=== PATIENT | male | born 1955 | race African-American/Black ===

== ENCOUNTER 2016-07-26 16:53 | Inpatient (IN) | payer MEDICARE, MEDICAID ==
--- NOTE | ~2016-07-26 | PR ---
[place], [place] PROGRESS NOTE NAME: ELISA MORRIS UNIT #: [id number] ROOM: 315 DOCTOR: RAFI BOO BIRTHDATE: [birth year] DOS: 07/28/2016 CHIEF COMPLAINT: "Good morning." SUMMARY OF VISIT: The patient was assessed and interviewed in his room. He initially did not talk to me when I asked him if he remembered me from [facility]. He opened his eyes and said oh yeah, hi. He was lying in bed, waiting for breakfast. Staff notes that he has been refusing p.o. medications and becomes quite agitated when I tried to encourage him to take it. Discussed with Dr. Escboar, we are going to discontinue as much of his p.o. psych meds as we can to limit this since he did get an injection yesterday. He is okay with taking injections. MENTAL STATUS: He is alert and oriented to person, place, approximate time. I think he is still psychotic and delusional, but he is calming down. Again, we are trying to accommodate him a little bit and trying to prevent his escalating behaviors by limiting medications that we can avoid at this point in time. PLAN: He did get his Haldol Decanoate injection today. We will plan on giving him a low dose Invega Sustenna 234 mg at the end of the month. I will discontinue his trazodone and his p.o. Invega at this point in time. He takes his Klonopin and we will continue to try to engage in individual and sandhu milieu therapy and monitor for improvement. JUSTYNA BOO CNP CM:PNTRANS [id number] RAFI BOO 07/28/16 1027 interface
--- NOTE | ~2016-07-26 | PR ---
[place], [place] PROGRESS NOTE NAME: ELISA MORRIS UNIT #: [id number] ROOM: 315 DOCTOR: WENDY BAKER MD BIRTHDATE: [birth year] DOS: 08/08/2016 CHIEF COMPLAINT: "When do I get to go home." SUMMARY OF THE VISIT: The patient was interviewed in his room where he was resting in bed. He voiced no complaints. The patient was visited Monday by [facility], which is a care home in the [facility]. He apparently had resided there in the past and was very happy to see them. All indications are that they are accepting him there and will do so on Monday. He does seem to be happy with this decision. MENTAL STATUS: The patient is alert and oriented. Mood does seem to be trending towards euthymia and overall he has improved significantly from admission. PLAN: At the present time, his medication regimen is stable. I will maintain both the Haldol Decanoate and the Invega Sustenna at their current doses, both being by 2 weeks in order to maintain significant and consistent blood levels. We will monitor and support. Plan to discharge then tomorrow. WENDY BAKER MD CM:PNTRANS [id number] WENDY BAKER MD 08/08/16 0946 interface
--- NOTE | ~2016-07-26 | PR ---
[place], [place] PROGRESS NOTE NAME: ELISA MORRIS UNIT #: [id number] ROOM: 315 DOCTOR: RAFI BOO BIRTHDATE: [birth year] DOS: 07/31/2016 CHIEF COMPLAINT: Nonverbal. SUMMARY OF VISIT: The patient was assessed in the dining room and in the hallway throughout my rounds today. I tried to engage him in conversation and patient finally said he was fine, but then would not participate in any other conversations today. No voiced complaints from nursing. Basically, stated that he was okay yesterday. He is still noncompliant with his medications, which I fear is going to cause his behaviors to become worse eventually. MENTAL STATUS EXAMINATION: Alert and oriented to person and place. I do not know about time. Mood is very labile, still delusional, talking on his finger phone, responding to hallucinations. No elissa or hypomania. PLAN: His Invega Sustenna injection is due at the end of the month. We may need to give that to him sooner than later. He did receive his Haldol Deaconate injections several days ago. [facility], he has been fine. It is just that he is going deeper and deeper into the delusions and becoming more withdrawn, so we may need to give him the Invega Sustenna sooner. We will continue to monitor. Hospitalist did finally discontinue his fingersticks and some of his medications to help simplify it, so that he would not become agitated, refusing them. We will try to engage in individual and sandhu milieu therapy and plan to discharge once stable. JUSTYNA BOO CNP CM:PNTRANS [id number] 15 RAFI BOO 07/31/16 171 interface
--- NOTE | ~2016-07-26 | PR ---
[place], [place] PROGRESS NOTE NAME: ELISA MORRIS UNIT #: [id number] ROOM: 315 DOCTOR: WENDY BAKER MD BIRTHDATE: [birth year] DOS: 08/06/2016 INTERVAL NOTE CHIEF COMPLAINT: "When am I going home?" SUMMARY OF THE VISIT: The patient was interviewed as he rested in bed. He had his back to me. He very quickly turned around and was fixated once again on going home. When I did tell him that this was unknown, he did get little upset with me turned his back to me once again and refused to speak to me. Nurses report, he continues to be very bizarre and is talking to unforeseen others, talking to his finger phone, etc. MENTAL STATUS: He is alert and oriented with time gaps. Mood does still seem to be labile, but he is much less agitated and self redirects much better. There is no hypomania or elissa. He remains grossly psychotic, but this is baseline, there has been no agitation or aggression. Memory has gaps. PLAN: I will maintain his current psychotropic regimen. Continue to support and monitor, engage in individual and sandhu milieu activity as we continue to explore possible placement options for the patient. WENDY BAKER MD CM:PNTRANS [id number] WENDY BAKER MD 08/06/16 1025 interface
--- NOTE | ~2016-07-26 | PR ---
[place], [place] PROGRESS NOTE NAME: ELISA MORRIS UNIT #: [id number] ROOM: 315 DOCTOR: WENDY BAKER MD BIRTHDATE: [birth year] DOS: 08/05/2016 CHIEF COMPLAINT: "I have been here 900 centuries, how much longer do I have to stay here." SUMMARY OF THE VISIT: The patient was interviewed as he rested in bed. As I approached, he very angrily said that he had been here 900 centuries and was ready to leave. I did redirect and state that we are working on finding him placement. He did initially become somewhat verbally agitated, but very quickly calmed himself down and did state that he was going to go down and have breakfast. He has been much more redirectable of late and may begin to escalate, but very quickly self redirects without prompting. He does seem to be tolerating the current regimen well. I see no sedation, somnolence, extrapyramidal symptoms or tardive dyskinesia. MENTAL STATUS: He is alert and oriented with some time gaps. Mood does seem to be trending towards euthymia and affect is more appropriate. There are no symptoms of elissa or hypomania. There remains residual psychosis, but this the patient's baseline. PLAN: At the present time is to maintain the current psychotropic regimen. There does seem to be a trend toward improvement. He is tolerating the medicines well without side effects. We will continue to have social services analyst explore placement options and will discharge him then when appropriate placement option exists. WENDY BAKER MD CM:PNTRANS [id number] WENDY BAKER MD 08/05/16 0937 interface
--- NOTE | ~2016-07-26 | PR ---
[place], [place] PROGRESS NOTE NAME: ELISA MORRIS UNIT #: [id number] ROOM: 315 DOCTOR: RAFI BOO BIRTHDATE: [birth year] DOS: 07/30/2016 CHIEF COMPLAINT: "The patient will not talk to me today." SUMMARY OF VISIT: The patient was assessed in the dining room where he was talking on his finger phone getting very agitated with the conversation, he was having with himself. I waited until he was off his call and then try to engage him in conversation and patient refused to talk to me today. Nursing does note that he refused all meds yesterday, very agitated with the multiple fingersticks for the diabetes and our attempts to get a urinalysis. We did discuss with the hospitalist, they are agreeable with us as far as the blood glucose checks. I went ahead and discontinued the urinalysis. We could try to redirect and we are trying to simplify medications as much as possible. MENTAL STATUS: Alert and oriented to person, place and I do not think time. Mood still quite labile. He is having delusions may be responding to hallucinations. We will keep an eye on him. PLAN: The Invega Sustenna injection is scheduled for the end of the month. He did receive his Haldol Decanoate injections. Again, we simplified his p.o. meds as much as possible got rid of any labs or fingersticks that is causing increased irritation. At this point in time, patient is okay with taking injectables just not p.o. pills. This has been his case in the past as well, so we will continue to monitor, try to redirect we can and we will use IMs if he becomes behavioral to the point where he is harm to himself or others. JUSTYNA BOO CNP CM:PNTRANS [id number] RAFI BOO 07/30/16 1115 interface
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
--- NOTE | ~2016-07-26 | PR ---
[place], [place] PROGRESS NOTE NAME: ELISA MORRIS UNIT #: [id number] ROOM: 315 DOCTOR: WENDY BAKER MD BIRTHDATE: [birth year] DOS: 08/09/2016 INTERVAL NOTE CHIEF COMPLAINT: "When am I going home, you know I did do time in the service." SUMMARY OF THE VISIT: The patient was interviewed once again as he rested in bed. He at first very angrily asked me when he was going home, and when I told him we were still working on housing options, he did state that he is [facility] and did do time in the . Whether this is reality or one of the patient's outrageous comments, I am unclear, but I will discuss this with social media strategist to evaluate. Otherwise, he is much more redirectable than he has been upon early admission. MENTAL STATUS: He is alert and oriented with mild time gaps. Mood does seem to be more euthymic. Affect is more appropriate. While he still has residual delusional material present, he is more redirectable and does back down more quickly when confronted. Memory has some mild gaps, but otherwise he is intact. PLAN: I will maintain his current dosing of the Invega Sustenna and the Haldol Decanoate; they do seem to be having a positive impact on his overall level of psychosis and mood lability. I see no tardive dyskinesia or extrapyramidal symptoms. At this point, the major issue is housing. As we are not finding any long-term care facility that can adequately meet his needs, at this point I do not see him as a candidate to go into a [facility]. He does require more consistent supervision than a m[facility] could offer. I will discuss this further with social media strategist to see what options the patient has. WENDY BAKER MD CM:PNTRANS 0810 1132 WENDY BAKER MD 08/09/16 1133 interface
--- NOTE | ~2016-07-26 | PR ---
[place], [place] PROGRESS NOTE NAME: ELISA MORRIS UNIT #: [id number] ROOM: 315 DOCTOR: WENDY BAKER MD BIRTHDATE: [birth year] DOS: 08/07/2016 CHIEF COMPLAINT: "Hey, when do I get to go home?" SUMMARY OF THE VISIT: The patient was interviewed as he rested quietly in bed. He engaged briefly in conversation that was very fixated on him leaving. He remains very delusional and that he believes that he could leave here, go to an apartment, that he does not go to a snf. He still continues to state that his mother is . He did redirect, however, and did not escalate to the point where he became angry with me, which he had done earlier in his hospital stay. He does appear to be tolerating the medications well, and I see no tardive dyskinesia, extrapyramidal symptoms, or other type of side effects. MENTAL STATUS: He is alert and oriented with some time gaps. Mood does still to be labile, but redirectable. He remains grossly delusional, but this seems fixed. There are some gaps in his memory. PLAN: I will maintain his current psychotropic regimen given benefits without apparent side effects, engage in individual and sandhu milieu activity with the plan to return to the least restrictive environment when stable. WENDY BAKER MD CM:PNTRANS [id number] WENDY BAKER MD 08/07/16 1106 interface
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
--- NOTE | ~2016-07-26 | PR ---
[place], [place] PROGRESS NOTE NAME: ELISA MORRIS UNIT #: [id number] ROOM: 315 DOCTOR: RAFI BOO BIRTHDATE: [birth year] DOS: 07/29/2016 CHIEF COMPLAINT: "Good morning." SUMMARY OF VISIT: The patient was interviewed in the dining room where he engaged in conversation. He is still a little manic, hyper, talking on his finger phone, redirectable though for me and did much better over the last 24 hours except that he was refusing his p.m. meds per the night nurses. He took them per the day nurses, however. He did become agitated with the multiple fingersticks for his diabetes. He states that we could do it one time a day and that was it. Upon reviewing his labs, the nurses state that his blood glucoses have been within normal range and he has not required any treatment. So, I am asking that they reach out to the hospitalist and let them know that I am going to have them switch just once a day and this is only to decrease behaviors, confrontations, agitations from this person so that we can get him a little bit more stable. MENTAL STATUS: He is alert and oriented to person, place, approximate time. Mood, still labile. No overt signs of auditory or visual hallucinations. He can be delusional. He has full conversations on his finger phone. There are some memory issues. PLAN: He did get a Haldol Deaconate injection. This titrate up in his system. I went ahead and put in the order for the Invega Sustenna 234 mg for him to receive at the end of the month. I discontinued as many as p.o. meds as possible because this was agitating point for him as well. We will continue to try to engage in individual and sandhu milieu therapy and allow the injectables to work and go from there. JUSTYNA BOO CNP CM:PNTRANS [id number] RAFI BOO 07/29/16 0900 interface
--- NOTE | ~2016-07-26 | PR ---
[place], [place] PROGRESS NOTE NAME: ELISA MORRIS UNIT #: [id number] ROOM: 315 DOCTOR: WENDY BAKER MD BIRTHDATE: [birth year] DOS: 08/01/2016 CHIEF COMPLAINT: "I don't need no medicine, I am done with medicine." SUMMARY OF THE VISIT: The patient was attempted to be interviewed as he rested in bed. As I approached and began talking to him, he escalated very quickly and became very angry and irritable. He reported that he did not need to be here, he did not need to be on medicine, and he wanted to go home. Attempts to engage him to come down for breakfast or leave his room were met with him becoming more angry. MENTAL STATUS: He is alert and oriented to person, place, approximate to time. Mood is very volatile and he is very much on edge and irritable. He remains grossly psychotic and nurses report significant mood swings and psychotic behavior. Memory was not fully tested due to his lack of cooperation. PLAN: Given the fact that he is episodically noncompliant with his medicines, I am going to attempt to simplify his regimen. So, we are not offering him 30 pills in any given day. Along those lines, I will discontinue vitamin D, folic acid, Os-Yuriy, and niacin and replace it with multivitamin with minerals. I will likewise discontinue the Fleet and the Dulcolax and increase lactulose from 20 g twice a day to 40 g twice a day. I will discontinue Ativan at this point. Given his severity of his psychosis, would prefer to use Geodon if needed. He is also on straight Klonopin. I will go ahead and move his Invega Sustenna injection up from to be given now and that will be 234 mg IM monthly. I may switch him from the oral Provera to Depo-Provera, again lessening his load of oral medications, so we can get him to be more compliant with his other medicines. We will attempt to engage him in individual and sandhu milieu activity. Social Service is aware that we are looking out for alternative placement for him. We will continue to do so and discharge him when such a placement is found and his behavior is under control. WENDY BAKER MD CM:PNTRANS 0931 1044 WENDY BAKER MD 08/01/16 1044 interface
[~2016-07-26 16:53] MED LIST: ADVAIR 250/501 EA INH; ADVAIR DISKUS 21 DSK INH; ASPIR LOW81 MG PO; ATORVASTATIN CA10 M1 PO; AYR NASAL GEL22 M1 NAS; BISAC-EVAC10 MG RC; CALCIUM 500 +1 EAC1 PO; CITALOPRAM HYDR20 MG PO; COLACE100 MG PO; FLEET ADULT ENEM1 EA R; GLUCAGON EMERGEN1 M1 IJ; GLUCOPHAGE500 M1 PO; HALDOL DECA100 MG/ML IM; HALOPERIDO100 MG/1 M IM; INVEGA SUSTENN156 MG IM; INVEGA SUSTENN234 MG IM; INVEGA6 MG PO; LACTULOSE20 GM/30 M PO; LANTUS100 U/ML SQ; LEVEMIR FLEX100 U/ML SC; LOPRESSOR25 MG PO; Lac-Hydrin 12%340 GM TP; MEDROXYPROGESTE10 M1 PO; MOM30 M1 PO; NATURE'S BLEND F1 MG PO; NIACIN 37 MG-501 TAB PO; NIACIN500 M5 PO; PROVERA5 MG PO; SEROQUEL400 M1 PO; TESSALON PERLE100 MG PO; TRAZODONE150 MG PO; TYLENOL325 M1 PO; VITAMIN D350000 UNIT PO; VITAMIN D50000 I3 PO; ZIPRASIDONE HCL80 M1 PO
[2016-07-26] MEDS ORDERED: LANTUS100 U/ML IM (17:06)
[2016-07-26] MEDS ORDERED: KLONOPIN1 M1 PO (18:41)
[2016-07-26] MEDS ORDERED: GLUCAGON EMERGEN1 M1 IM (20:15)
[2016-07-26 20:29] VITALS: BP 117/67
[2016-07-27 08:14] VITALS: BP 107/60
[2016-07-27 10:30] VITALS: BP 132/78
[2016-07-27 20:11] VITALS: BP 105/60
[2016-07-28 07:44] LABS: BASO % 0.6 % (0.0-1.0); EOS # 0.2 10*3/uL (0.0-0.4); HEMATOCRIT 38.7 % (42.0-52.0); LYMPH # 1.4 10*3/uL (1.3-4.4); LYMPH % 27.7 % (27.0-41.0); MEAN CELL VOLUME 94.6 fl (80.0-94.0); MEAN CORPUSCULAR HGB 31.8 pg (27.0-31.0); MEAN CORPUSCULAR HGB CONC 33.6 g/dl (33.0-37.0); MEAN PLATELET VOLUME 9.6 fl (9.6-12.3); MONO # 0.7 10*3/uL (0.1-1.0); MONO % 13.5 % (3.0-9.0); NEUT # 2.7 10*3/uL (2.3-7.9); PLATELET COUNT AUTOMATED 286 10*3/uL (130-400); RED BLOOD COUNT 4.09 10*6/uL (4.50-5.90); RED CELL DISTRI WIDTH 14.7 % (0-14.5); WHITE BLOOD COUNT 5.1 10*3/uL (4.8-10.8)
[2016-07-28 08:05] VITALS: BP 105/63
[2016-07-28 08:07] LABS: ALBUMIN 3.1 gm/dl (3.1-4.5); ALKALINE PHOSPHATASE 48 U/L (45-117); BILIRUBIN, TOTAL 0.6 mg/dl (0.2-1.0); BUN 10 mg/dl (7-24); CARBON DIOXIDE 28 mmol/L (21-32); CHLORIDE 107 mmol/L (98-107); EST GLOM FILT AFRICAN AMERICAN > 60 ml/min; GLUCOSE 83 mg/dL (65-99); POTASSIUM 4.3 mmol/L (3.5-5.1); SGOT/AST 16 IU/L (3-35); SGPT/ALT 27 U/L (12-78); SODIUM 143 mmol/L (136-145); TOTAL PROTEIN 7.2 gm/dL (6.4-8.2)
[2016-07-28 08:13] LABS: THYROID STIM HORMONE (HS) 0.384 uIU/ml (0.358-4.75)
[2016-07-28 09:27] LABS: VITAMIN D, 25-HYDROXY 34.9 ng/mL (30-100)
[2016-07-28 20:36] VITALS: BP 102/52
[2016-07-29 20:36] VITALS: BP 112/66
[2016-07-30 07:50] VITALS: BP 118/75
[2016-07-30 20:08] VITALS: BP 142/88
[2016-07-31 08:27] VITALS: BP 118/77
[2016-08-01 08:09] VITALS: BP 119/61
[2016-08-01 20:00] VITALS: BP 106/64
[2016-08-02 08:22] VITALS: BP 126/82
[2016-08-02 20:47] VITALS: BP 113/54
[2016-08-03 08:29] VITALS: BP 110/62
[2016-08-04 08:06] VITALS: BP 105/64
[2016-08-05 08:11] VITALS: BP 104/60
[2016-08-05 19:53] VITALS: BP 122/93
[2016-08-06 07:49] VITALS: BP 110/65
[2016-08-06 20:00] VITALS: BP 119/62
[2016-08-07 07:51] VITALS: BP 110/52
[2016-08-08 08:00] VITALS: BP 124/66
[2016-08-08 20:39] VITALS: BP 112/72
[2016-08-09 09:01] VITALS: BP 118/62
[2016-08-10] MEDS ORDERED: INVEGA SUSTENN234 MG IM (09:31)
[2016-08-10] MEDS ORDERED: CITALOPRAM HYDR20 MG PO (09:31)
[2016-08-10] MEDS ORDERED: KLONOPIN2 M1 PO (09:31)
[2016-08-10] MEDS ORDERED: HALOPERIDO100 MG/1 M IM (09:31)
== END 2016-08-10 14:15 | DRG 885 ==
LOC: 3N 16:53
PROVIDERS: Psychiatry & Neurology Psychiatry
DX: F25.9 Schizoaffective disorder, unspecified (principal); E11.65 Type 2 diabetes mellitus with hyperglycemia; I10 Essential (primary) hypertension; E53.8 Deficiency of other specified B group vitamins; E78.00 Pure hypercholesterolemia, unspecified; E55.9 Vitamin D deficiency, unspecified; R00.0 Tachycardia, unspecified; I25.10 Atherosclerotic heart disease of native coronary artery without angina pectoris; Z79.4 Long term (current) use of insulin; Z79.899 Other long term (current) drug therapy